=== PATIENT | female | born 1970 | race American Indian/Alaskan Native ===

== ENCOUNTER 2018-01-11 03:37 | Emergency (ER) | payer MEDICARE ==
[2018-01-11] MEDS ORDERED: ASPIRIN PO ONE (03:50)
[2018-01-11 04:31] LABS: Basophils # (Auto) 0.1 K/mm3 (0.0-0.1); Basophils % (Auto) 0.8 % (0.0-1.8); Eosinophils # (Auto) 0.1 K/mm3 (0.0-0.4); Eosinophils % (Auto) 1.1 % (0.0-4.3); Hematocrit 36.1 % (30.3-42.9); Hemoglobin 12.6 gm/dl (10.1-14.3); Lymphocytes # (Auto) 2.3 K/mm3 (1.2-5.4); Lymphocytes % (Auto) 33.1 % (13.4-35.0); Mean Corpuscular HGB Conc 35 % (30-34); Mean Corpuscular Hemoglobin 32 pg (28-32); Mean Corpuscular Volume 92 fl (79-97); Monocytes # (Auto) 0.6 K/mm3 (0.0-0.8); Monocytes % (Auto) 9.1 % (0.0-7.3); Platelet Count 265 K/mm3 (140-440); Red Blood Count 3.94 M/mm3 (3.65-5.03); Red Cell Distribution Width 13.8 % (13.2-15.2)
[2018-01-11 04:46] LABS: BUN/Creatinine Ratio 21; Blood Urea Nitrogen 25 mg/dL (7-17); Calcium 9.6 mg/dL (8.4-10.2); Hemolysis Index 2
[2018-01-11 07:47] VITALS: BP 112/68
[2018-01-11] MEDS ORDERED: NACL 0.9% 1000 ML 1,000 ML IV ONE (08:51)
[2018-01-11] MEDS ORDERED: VALIUM PO ONE (08:51)
[2018-01-11] MEDS ORDERED: TYLENOL ONE (08:57)
--- NOTE | 2018-01-11 09:09 | Emergency Department Report ---
ED Chest Pain HPI - General Chief Complaint: Chest Pain Stated Complaint: BODY PAIN Time Seen by Provider: 01/11/18 08:44 Source: patient, EMS Mode of arrival: Wheelchair Limitations: No Limitations - History of Present Illness Initial Comments: 47-year-old AA female presents to the emergency department by EMS from home with complaint of muscle spasms that started down in her legs but then moved away all the way up to her chest. She denies any shortness of breath, nausea, vomiting, fever. She denies any past medical history. She has not taken anything for her symptoms prior to presentation. She has a previous tubal ligation. No recent travel or sick contacts at home. Severity scale (0 -10): 0 - Related Data Previous Rx's Medication Instructions Recorded Last Taken Type Cyclobenzaprine HCl [Flexeril 5 MG 5 mg PO TID PRN #10 tab 01/11/18 Unknown Rx TAB] Allergies Allergy/AdvReac Type Severity Reaction Status Date / Time Penicillins Allergy Unknown Verified 01/11/18 03:50 Heart Score - HEART Score History: Slightly suspicious EKG: Normal Age: 45-65 Risk factors: 1-2 risk factors Troponin: < normal limit HEART Score: 2 - Critical Actions Critical Actions: 0-3 pts:0.9-1.7%risk of adverse cardiac event.Candidate for discharge ED Review of Systems ROS: Stated complaint: BODY PAIN Other details as noted in HPI Comment: All other systems reviewed and negative Constitutional: denies: chills, fever Eyes: denies: eye pain, eye discharge, vision change ENT: denies: ear pain, throat pain Respiratory: denies: cough, shortness of breath, wheezing Cardiovascular: chest pain. denies: palpitations Gastrointestinal: denies: vomiting, diarrhea Genitourinary: denies: urgency, dysuria, discharge Musculoskeletal: myalgia. denies: joint swelling Skin: denies: rash, lesions Neurological: denies: headache, weakness, paresthesias ED Past Medical Hx - Past Medical History Previous Medical History?: No - Surgical History Past Surgical History?: Yes Additional Surgical History: tubal ligation - Social History Smoking Status: Never Smoker Substance Use Type: Marijuana - Medications Home Medications: Home Medications Medication Instructions Recorded Confirmed Last Taken Type Cyclobenzaprine HCl [Flexeril 5 MG 5 mg PO TID PRN #10 tab 01/11/18 Unknown Rx TAB] ED Physical Exam - General Limitations: No Limitations - Other Other exam information: GENERAL: The patient is well-developed well-nourished. HENT: Normocephalic. Atraumatic. Patient has moist mucous membranes. EYES: Extraocular motions are intact. Pupils equal reactive to light bilaterally. NECK: Supple. Trachea is midline. CHEST/LUNGS: Clear to auscultation. There is no respiratory distress noted. There is some reproducible tenderness along the generalized chest wall. No crepitus or deformity. HEART/CARDIOVASCULAR: Regular. There is no tachycardia. There is no murmur. ABDOMEN: Abdomen is soft, nontender. Patient has normal bowel sounds. There is no abdominal distention. SKIN: Skin is warm and dry. NEURO: The patient is awake, alert, and oriented. The patient is cooperative. The patient has no focal neurologic deficits. The patient has normal speech. MUSCULOSKELETAL: There is no tenderness or deformity. There is no evidence of acute injury. ED Course Vital Signs 01/11/18 01/11/18 03:44 07:46 Temperature 98.2 F 98.3 F Pulse Rate 97 H 83 Respiratory 18 16 Rate Blood Pressure 121/64 112/68 O2 Sat by Pulse 98 100 Oximetry GT score - Gt Score Age > 65: (0) No Aspirin use within the Past 7 Days: (0) No 3 or more CAD Risk Factors: (0) No 2 or more Angina events in past 24 hrs: (1) Yes Known CAD with more than 50% Stenosis: (0) No Elevated Cardiac Markers: (0) No ST Deviation Greater than 0.5mm: (0) No GT Score: 1 ED Medical Decision Making - Lab Data Result diagrams: 01/11/18 04:13 01/11/18 04:13 - EKG Data -: EKG Interpreted by Me EKG shows normal: sinus rhythm, axis, intervals, QRS complexes (LVH), ST-T waves Rate: normal - EKG Data When compared to previous EKG there are: previous EKG unavailable Interpretation: LVH - Radiology Data Radiology results: image reviewed interpreted by me: Chest x-ray does not show any acute process. There are no pleural effusions, obvious pneumonia and there is no pneumothorax. - Medical Decision Making The patient complains of muscle cramping and spasms that started down in the legs but make their way up towards the chest. This is an atypical presentation of chest pain but she was evaluated with serial troponins, EKG and chest x-ray. There were some signs of early repolarization but otherwise no ST elevation SD , ischemia or dysrhythmia. Chest x-ray did not show any acute process. Labs are unremarkable including negative troponins 2, negative d-dimer, and there were no electrolyte abnormalities to show the reason for the cramping and her spasms. She was given some IV fluid and a muscle relaxer. She was reevaluated multiple times for multiple hours and is feeling improved. Vital signs stable throughout her ED course. She appears safe for discharge home at this time but has been given a referral for both primary care and cardiology. She will return to the ER with any worsening of her symptoms or any acute distress. - Differential Diagnosis muscle spasm, cramping, dehydration, SD, PE Critical Care Time: No Critical care attestation.: If time is entered above; I have spent that time in minutes in the direct care of this critically ill patient, excluding procedure time. ED Disposition Clinical Impression: Muscle spasm, Intermittent chest pain, Muscle cramps Disposition: DC- TO HOME OR SELFCARE Is pt being admited?: No Condition: Stable Instructions: Chest Pain (ED), Muscle Spasm (ED), Muscle Cramp (ED) Additional Instructions: Please increase your oral rehydration. Please follow up with a primary care physician in the next few days without fail. I have given you a referral for a local is technician, Dr. Ramos, to follow up regarding your chest pain. Return to the emergency department immediately with any worsening of your symptoms or any acute distress. You have been prescribed a medication that is sedating and therefore should not be taken prior to driving, working, and responsible for children and in no way should be mixed with alcohol of any quantity. Prescriptions: Cyclobenzaprine HCl [Flexeril 5 MG TAB] 5 mg PO TID PRN #10 tab PRN Reason: Muscle Spasm Referrals: EDELMIRA BYNUM MD [Primary Care Provider] - 3-5 Days AMPARO RAMOS MD [Staff Physician] - 3-5 Days JOHNIE PERAZA MD [Staff Physician] - 3-5 Days [facility] [Outside] - 3-5 Days Forms: Work/School Release Form(ED) Time of Disposition: 10:18
--- NOTE | 2018-01-11 11:17 | XRay Report ---
AP CHEST: HISTORY: chest pain AP view of the chest demonstrates a normal mediastinal and cardiac contour with clear lungs and normal bony and soft tissue structures. IMPRESSION: Unremarkable AP chest.
== END 2018-01-11 10:58 | disposition home or self-care (01) ==
LOC: ED 03:37
DX: M62.838 Other muscle spasm (principal); R07.9 Chest pain, unspecified; M79.1 Myalgia; F12.10 Cannabis abuse, uncomplicated
CPT/HCPCS: 36415; 71045; 80048; 83735; 84484; 85025; 85379; 93005; 93010; 96360; 99285; J7030